=== PATIENT | female | born 2000 | race African-American/Black ===

== ENCOUNTER → 2024-01-24 06:08 | Day surgery (SDC) | payer OTHER, SELFPAY ==
[2024-01-24 06:55] VITALS: BP 125/82; BMI 22.3
[2024-01-24 07:10] VITALS: BMI 22.3
[2024-01-24] MEDS: TYLENOL 1000 MG PO (07:27)
[2024-01-24 09:00] VITALS: BP 100/63
--- NOTE | 2024-01-24 09:08 | OR.RPT ---
Operative Report
Operative Report
Primary Surgeon: Deyvi
Assisting: Naomi FITCH
Pre-op Diagnosis: Umbilical hernia
Post-op Diagnosis: Incarcerated umbilical hernia
Procedure Performed: Primary repair incarcerated umbilical hernia
Anesthesia Type: MAC local
Specimen / Cultures: None
Estimated Blood Loss: 2cc
Complications: None immediate
Operative Findings: 1.5cm defect closed with 2-0 prolene suture
Date of Surgery: 01/24/24
Indications: This 23F developed a symptomatic umbilical hernia and open repair was elected. She is unsure if she wants to bear children in the future, thus mesh was not deployed.
PROCEDURE: After informed consent was obtained, the patient was brought to the operative suite and placed supine on the operating table. The patient was sedated, prepped and draped in the usual sterile manner and an adequate local anesthetic was
administered using marcaine with epinephrine.
A standard curvilinear umbilical incision was made, and dissection was carried down to the fascia using a combination of Metzenbaum scissors and Bovie electrocautery. The hernia was encircled by tunneling through the subcutaneous fat at the level of
the fascia using large curved Finnegan scissors, and the sac was then liberated from the umbilical stalk using careful blunt dissection. Incarcerated fat was manually reduced.The sac was cleared of overlying adherent tissue, and the fascial defect was
delineated, it was noted to measure 1.5cm. The fascia was cleared circumferentially of any adherent tissue for a distance of 2cm from the defect. The sac was then reduced into the abdominal cavity. The defect was then closed using simple interrupted
2-0 prolene sutures. The umbilicus was then reconstructed using 3-0 Vicryl to tack the umbilical stalk to the fascia.
The wound was then irrigated with copious sterile saline, and hemostasis was obtained using Bovie electrocautery. The skin was approximated with 3-0 Vicryl deep dermal interrupted sutures and 4-0 monocryl suture in a subcuticular fashion. A pressure
dressing was then applied. All surgical counts were reported as correct.
The patient tolerated the procedure well and was taken to the PACU in stable condition.
[2024-01-24 09:15] VITALS: BP 112/73
[2024-01-24 09:30] VITALS: BP 112/73
== END | disposition home or self-care (01) ==
LOC: SDS 06:08
PROVIDERS: ATTENDING PHYSICIAN Surgery; FAMILY PHYSICIAN Physician Assistant Medical
PROC: 0WQF0ZZ Repair Abdominal Wall, Open Approach (ICD-10-PCS; 2024-01-24)
DX: K42.0 Umbilical hernia with obstruction, without gangrene (principal)
CPT/HCPCS: 49592

== ENCOUNTER → 2024-05-11 11:13 | Outpatient (REF) | payer OTHER, SELFPAY | LOC: RAD 11:13 | PROVIDERS: ATTENDING PHYSICIAN Physician Assistant Medical | DX: R31.0 Gross hematuria (principal) | CPT/HCPCS: 76770 ==